=== PATIENT | female | born 1955 | race Asian ===

== ENCOUNTER 2017-01-01 12:30 | Emergency (ER) | payer BC, OTHER ==
[~2017-01-01] VITALS: Ht 170.2 cm; Wt 74.8 kg
--- NOTE | 2017-01-01 13:05 | ED General ---
General Chief Complaint: Cough/Cold/Flu Symptoms Stated Complaint: ELEVATED BS,DEHYDRATION Source of Information: Patient Exam Limitations: No Limitations History of Present Illness Time Seen by Provider: 13:04 Initial Comments To ER with reports of high blood sugar at 230 at home. She is a diabetic and takes Actos and metformin. She's also been vomiting for the past few days. She 's also been febrile. Denies abdominal pain. Denies diarrhea. Does not have a local physician but does live here. Reports diffuse body aches. Reportedly, the tested negative for influenza 3-4 days ago and is currently on Tamiflu for suspected influenza Timing/Duration: 2-3 Days Severity: Moderate Associated Systoms: Fever/Chills Malaise Nausea/Vomiting Allergies and Home Medications Allergies Coded Allergies: No Known Drug Allergies (Unverified , 01/01/17) Constitutional: see HPI EENTM: see HPI Respiratory: no symptoms reported Cardiovascular: no symptoms reported Gastrointestinal: No abdominal pain, nausea vomiting Genitourinary: no symptoms reported Musculoskeletal: no symptoms reported Skin: no symptoms reported Psychiatric/Neurological: No Symptoms Reported Physical Exam Vital Signs Vital Sign - Last 12Hours 01/01/17 13:00 Temp 98.4 Pulse 86 Resp 16 B/P 137/57 O2 Delivery Room Air Capillary Refill : General Appearance: No Apparent Distress WD/WN Eyes: Bilateral Eye EOMI, Bilateral Eye Normal Inspection, Bilateral Eye PERRL HEENT: PERRL/EOMI TMs Normal Respiratory: No Accessory Muscle Use No Respiratory Distress Cardiovascular: Regular Rate, Rhythm Normal Peripheral Pulses Gastrointestinal: Non Tender Soft Abnormal Bowel Sounds (hypoactive) Extremity: Normal Capillary Refill Normal Inspection Neurologic/Psychiatric: Alert Oriented x3 No Motor/Sensory Deficits Skin: Normal Color Warm/Dry Progress/Results/Core Measures Results/Orders Lab Results Laboratory Tests Test 01/01/17 12:57 Range/Units Alanine Aminotransferase (ALT/SGPT) 14 0-55 U/L Albumin 4.0 3.2-4.5 G/DL Alkaline Phosphatase 77 40-136 U/L Anion Gap 12 5-14 MMOL/L Aspartate Amino Transf (AST/SGOT) 24 5-34 U/L BUN/Creatinine Ratio 14 Basophils # (Auto) 0.0 0.0-0.1 10^3/uL Basophils (%) (Auto) 1 0-10 % Blood Urea Nitrogen 10 7-18 MG/DL Calcium Level 8.7 8.5-10.1 MG/DL Carbon Dioxide Level 23 21-32 MMOL/L Chloride Level 102 98-107 MMOL/L Creatinine 0.70 0.60-1.30 MG/DL Eosinophils # (Auto) 0.0 0.0-0.3 10^3/uL Eosinophils (%) (Auto) 1 0-10 % Estimat Glomerular Filtration Rate > 60 Glucose Level 141 H 70-105 MG/DL Hematocrit 41 35-52 % Hemoglobin 13.7 11.5-16.0 G/DL Lipase 6 L 8-78 U/L Lymphocytes # (Auto) 1.0 1.0-4.0 X 10^3 Lymphocytes (%) (Auto) 23 12-44 % Mean Corpuscular Hemoglobin 28 25-34 PG Mean Corpuscular Hemoglobin Concent 33 32-36 G/DL Mean Corpuscular Volume 83 80-99 FL Mean Platelet Volume 10.9 H 7.4-10.4 FL Monocytes # (Auto) 0.6 0.0-1.0 X 10^3 Monocytes (%) (Auto) 13 H 0-12 % Neutrophils # (Auto) 2.7 1.8-7.8 X 10^3 Neutrophils (%) (Auto) 62 42-75 % Platelet Count 267 130-400 10^3/uL Potassium Level 4.4 3.6-5.0 MMOL/L Red Blood Count 4.96 4.35-5.85 10^6/uL Red Cell Distribution Width 15.0 H 10.0-14.5 % Sodium Level 137 135-145 MMOL/L Total Bilirubin 0.2 0.1-1.0 MG/DL Total Protein 7.4 6.4-8.2 G/DL White Blood Count 4.3 4.3-11.0 10^3/uL Micro Results Microbiology 01/01/17 Influenza Types A,B Antigen ([facility]) - Final, Complete My Orders Orders-TRESA GODINEZ RAT CULTURIST Cbc With Automated Diff (01/01/17 13:02) Comprehensive Metabolic Panel (01/01/17 13:02) Lipase (01/01/17 13:02) Ua Culture If Indicated (01/01/17 13:02) Influenza A And B Antigens (01/01/17 13:02) Saline Lock/Iv-Start (01/01/17 13:02) Ns Iv 1000 Ml (Sodium Chloride 0.9%) (01/01/17 13:15) Ondansetron Injection (Zofran Injectio (01/01/17 13:15) Medications Given in ED Current Medications Medications Dose Ordered Sig/Shannon Route Start Time Stop Time Status Last Admin Dose Admin Ondansetron HCl 8 mg ONCE ONCE IVP 01/01/17 13:15 01/01/17 13:16 DC 01/01/17 13:09 8 MG Vital Signs/I&O Vital Sign - Last 12Hours 01/01/17 13:00 Temp 98.4 Pulse 86 Resp 16 B/P 137/57 O2 Delivery Room Air Departure Communication Progress Notes I did discuss with the that she is positive for influenza, Tamiflu would be unhelpful at this point since her symptoms of been present for 72 hours and antibiotics are not indicated as this is a viral illness. Impression Impression: Primary Impression: Influenza Disposition: 01 HOME, SELF-CARE Condition: Stable Departure-Patient Inst. Decision time for Depature: 13:40 Patient Instructions: Flu, Adult (DC) Add. Discharge Instructions: 1. Medication as directed 2. Return to ER for any worsening 3. Follow-up with her doctor next week All discharge instructions reviewed with patient and/or family. Voiced understanding. Scripts Ibuprofen 800 Mg [id number] Mg PO Q8H PRN PAIN #30 TAB Prov:TRESA GODINEZ APRN 01/01/17 Ondansetron (Zofran Odt)8 Mg Tab.rapdis8 Mg PO Q6H PRN NAUSEA/VOMITING #14 TAB Prov:TRESA GODINEZ APRN 01/01/17 TRESA GODINEZ APRN Jan 01, 2017 13:05
[2017-01-01 13:07] LABS: BASOPHILS % (AUTO) 1 % (0-10); EOSINOPHILS % (AUTO) 1 % (0-10); LYMPHOCYTES % (AUTO) 23 % (12-44); MEAN CORPUSCULAR HEMOGLOBIN 28 PG (25-34); MEAN CORPUSCULAR HGB CONC 33 G/DL (32-36); MEAN CORPUSCULAR VOLUME 83 FL (80-99); MEAN PLATELET VOLUME 10.9 FL (7.4-10.4); MONOCYTES # (AUTO) 0.6 X 10^3 (0.0-1.0); MONOCYTES % (AUTO) 13 % (0-12); NEUTROPHILS # (AUTO) 2.7 X 10^3 (1.8-7.8); NEUTROPHILS % (AUTO) 62 % (42-75); PLATELET COUNT 267 10^3/uL (130-400); RED BLOOD COUNT 4.96 10^6/uL (4.35-5.85); WHITE BLOOD COUNT 4.3 10^3/uL (4.3-11.0)
[2017-01-01] MEDS ORDERED: NS IV 1000 ML 1,000 ML IV SCH (13:15)
[2017-01-01] MEDS ORDERED: ONDANSETRON 4 MG/2 ML (SDV) Z0FRAN IVP ONE (13:15)
[2017-01-01 13:29] LABS: ALANINE AMINOTRANSFERASE 14 U/L (0-55); ANION GAP 12 MMOL/L (5-14); ASPARTATE AMINO TRANSFERASE 24 U/L (5-34); BILIRUBIN,TOTAL 0.2 MG/DL (0.1-1.0); BLOOD UREA NITROGEN 10 MG/DL (7-18); BUN/CREATININE RATIO 14; CALCIUM 8.7 MG/DL (8.5-10.1); CARBON DIOXIDE 23 MMOL/L (21-32); CHLORIDE 102 MMOL/L (98-107); GFR ESTIMATED > 60; GLUCOSE 141 MG/DL (70-105); LIPASE 6 U/L (8-78); POTASSIUM 4.4 MMOL/L (3.6-5.0); SODIUM 137 MMOL/L (135-145); TOTAL PROTEIN 7.4 G/DL (6.4-8.2)
[2017-01-01] MEDS ORDERED: ONDA8TAB9 PO (13:42)
[2017-01-01] MEDS ORDERED: IBUP-1780 PO (13:42)
[2017-01-01] MEDS ORDERED: KETOROLAC 30 MG/ML VIAL IVP ONE (13:45)
[2017-01-01 14:34] VITALS: BP 132/52
== END 2017-01-01 14:34 | disposition home or self-care (01) ==
LOC: ER 12:33
DX: J11.1 Influenza due to unidentified influenza virus with other respiratory manifestations (principal); E11.65 Type 2 diabetes mellitus with hyperglycemia; Z79.84 Long term (current) use of oral hypoglycemic drugs
CPT/HCPCS: 36415; 80053; 83690; 85025; 87804; 96361; 96374; 96375

== ENCOUNTER → 2019-05-30 | Outpatient (CLI) | payer BC, MEDICARE ==
[~2019-05-30] MED LIST: IBUP-1780 PO; ONDA8TAB9 PO
--- NOTE | 2019-05-30 17:48 | Diagnostic Imaging Report ---
INDICATION: Palpable lump on the dorsum of the right foot. FINDINGS: Sonographic interrogation of the area of palpable abnormality along the dorsum of the foot is noted. There is an area of ovoid circumscribed echogenicity measuring 2.5 x 0.6 x 1.4 cm, may represent a lipoma. No internal vascularity is seen. IMPRESSION: Questionable lipoma along the dorsum of the foot. Close clinical followup is recommended. If this does get bigger, further evaluation with MRI of the right foot would be recommended for better characterization. Dictated by: Dictated on workstation # [id number]
--- NOTE | 2019-05-30 20:00 | Diagnostic Imaging Report ---
INDICATION: Palpable lump in the upper-outer right breast. No prior studies are available for comparison. 2-D and 3-D bilateral diagnostic mammography was performed. BB marker was placed at the area of palpable abnormality in the upper-outer right breast. The current study was also evaluated with a Computer Aided Detection (CAD) system. 3-D tomosynthesis was also performed and reviewed. FINDINGS: There is a spiculated mass in the upper-outer right breast posterior depth approximately 2 cm in size. No associated microcalcifications are seen. Left breast is unremarkable. The axillae are unremarkable. IMPRESSION: Spiculated mass upper-outer right breast, concerning for neoplasm. Sonographic interrogation is recommended for further evaluation. ACR BI-RADS Category 0: Incomplete. (Needs additional imaging evaluation). Result letter will be mailed to the patient. Note: At least 10% of breast cancer is not imaged by mammography. Dictated by: Dictated on workstation # [id number]
--- NOTE | 2019-05-30 20:06 | Diagnostic Imaging Report ---
INDICATION: Right breast mass. Correlation is made with diagnostic mammogram earlier same day. FINDINGS: Sonographic interrogation of the upper-outer right breast was performed. At the 10 o'clock location, approximately 9 cm from the nipple there is a hypoechoic solid-appearing mass with irregular margins measuring 2.1 x 1.4 x 1.5 cm. This does show some internal vascularity along the margins. No other breast masses are seen. The right axilla is without lymphadenopathy. IMPRESSION: Irregular solid mass at the 10 o'clock location of the right breast corresponding to the palpable and mammographic abnormality. Features are concerning for breast neoplasm. Tissue sampling is recommended. This would be amenable to ultrasound-guided core biopsy. ACR BI-RADS Category 4: Suspicious abnormality. Dictated by: Dictated on workstation # [id number]
== END ==
LOC: RAD 13:11
PROVIDERS: ATTEND Nurse Practitioner Family
DX: N63.11 Unspecified lump in the right breast, upper outer quadrant (principal); R22.41 Localized swelling, mass and lump, right lower limb
CPT/HCPCS: 76881; 77066

== ENCOUNTER → 2019-06-02 | Outpatient (CLI) | payer BC, MEDICARE ==
[~2019-06-02] VITALS: Ht 172.7 cm; Wt 90.7 kg
[~2019-06-02] MED LIST changes: +LIDOCAINE 1% INJ 20 ML 20 ML VIAL INJ ONE
--- NOTE | 2019-06-02 19:03 | Diagnostic Imaging Report ---
INDICATION: Right breast mass, status post biopsy. EXAMINATION: 2D CC and ML mammography of the right breast was performed post ultrasound-guided biopsy. FINDINGS: Marker clip is located along the medial aspect of the spiculated mass in the upper outer right breast at posterior depth. IMPRESSION: Marker clip deployment, as described. Dictated by: Dictated on workstation # [id number]
--- NOTE | 2019-06-02 19:06 | Diagnostic Imaging Report ---
INDICATION: Right breast mass. Patient presents for ultrasound-guided biopsy. PROCEDURE: Patient was brought to the procedure room and placed on table in the supine position. Skin of the right breast was prepped and draped in the usual sterile fashion. A small amount of 1% lidocaine was utilized for local anesthesia. A 14-gauge Achieve needle was advanced and placed with its tip along the margin of the hypoechoic mass in the right breast 10 o'clock location. A total of four core biopsies were obtained. Marker clip was then deployed. Hemostasis was obtained using manual compression. Patient tolerated the procedure well and left the department in stable condition. IMPRESSION: Successful ultrasound-guided core biopsy of the hypoechoic mass in the right breast 10 o'clock location, 10 cm from the nipple. Pathology results are currently pending. Dictated by: Dictated on workstation # [id number]
== END ==
LOC: RAD 13:00
PROVIDERS: ATTEND Nurse Practitioner Family
DX: C50.411 Malignant neoplasm of upper-outer quadrant of right female breast (principal)
CPT/HCPCS: 19083

== ENCOUNTER → 2019-12-01 | Outpatient (CLI) | payer MEDICARE, MEDICAID ==
[~2019-12-01] MED LIST changes: -LIDOCAINE 1% INJ 20 ML 20 ML VIAL INJ ONE
== END ==
LOC: CARD 12:32
PROVIDERS: ATTEND Internal Medicine Cardiovascular Disease
DX: I15.9 Secondary hypertension, unspecified (principal)
CPT/HCPCS: 93306

== ENCOUNTER 2020-08-13 23:16 | Emergency (ER) | payer MEDICARE, MEDICAID ==
[~2020-08-13] VITALS: Ht 172.7 cm; Wt 94.8 kg
--- NOTE | 2020-08-13 23:33 | ED Integumentary General ---
General Stated Complaint: RT BREAST RED Source: patient Exam Limitations: language barrier History of Present Illness Date Seen by Provider: Aug 13, 2020 Time Seen by Provider: 23:17 Initial Comments Patient and present to the ER by private conveyance from home with chief complaint of a small patch of red tissue at the 12:00 apex above the right br east showed up on her skin. There is no wound or drainage. She's had no nipple discharge. Since late last night and has now vault to the entire right breast. It's painful. She's having a little bit of nausea but she says she is on Trulicity which has caused some nausea. She has a history of diabetes with labile blood sugars lately. They cannot tell me the numbers. She follows with primary care Dr. Love and oncology at [facility] and recently saw an community relations liaison there for her diabetes. She was diagnosed with right-sided, ipsilateral breast cancer year ago and had surgery and radiation but has only been on hormone therapy since then. No chemotherapy. No fevers, chills. She says she feels warm but no itching or pain. Allergies and Home Medications Allergies Coded Allergies: No Known Drug Allergies (Unverified , 01/01/17) Home Medications Ibuprofen 800 Mg Tablet, 800 MG PO Q8H PRN for PAIN Prescribed by: TRESA GODINEZ on 01/01/17 1342 Ondansetron 8 Mg Tab.rapdis, 8 MG PO Q6H PRN for NAUSEA/VOMITING Prescribed by: TRESA GODINEZ on 01/01/17 1342 Patient Home Medication List Home Medication List Reviewed: Yes Review of Systems Review of Systems Constitutional: No chills, No diaphoresis, No fever EENTM: No ear discharge, No ear pain Respiratory: No cough, No phlegm Cardiovascular: No chest pain, No edema Gastrointestinal: No abdominal pain, No nausea, No vomiting Genitourinary: No discharge, No dysuria Musculoskeletal: No back pain, No joint pain All Other Systems Reviewed Negative Unless Noted: Yes Past Vkflwwp-Grqwvn-Tpjgzf Hx Patient Social History Alcohol Use: Denies Use Recreational Drug Use: No Smoking Status: Never a Smoker Recent Foreign Travel: No Contact w/Someone Who Travel: No Physical Exam Vital Signs Vital Signs - First Documented 08/13/20 23:25 Temp 36.7 Pulse 111 Resp 20 B/P (MAP) 158/93 (114) Pulse Ox 98 Capillary Refill : General Appearance: WD/WN, no apparent distress HEENT: PERRL/EOMI, pharynx normal Neck: full range of motion, supple, normal inspection Cardiovascular: normal peripheral pulses, regular rate, rhythm Respiratory: lungs clear, normal breath sounds, no respiratory distress, no accessory muscle use Neurologic/Psychiatric: alert, normal mood/affect, oriented x 3 Skin: other (warm, dry, intact, erythematous skin involving the entire right b reast not going into the axilla but extending a few centimeters below the right breast. No exudate. No areas of induration. No nipple discharge. No pointing or wound. No areas of palpable fluctuance.) Progress/Results/Core Measures Results/Orders Lab Results Laboratory Tests Test 08/13/20 23:42 Range/Units White Blood Count 7.9 4.3-11.0 10^3/uL Red Blood Count 4.92 3.80-5.11 10^6/uL Hemoglobin 13.4 11.5-16.0 g/dL Hematocrit 41 35-52 % Mean Corpuscular Volume 83 80-99 fL Mean Corpuscular Hemoglobin 27 25-34 pg Mean Corpuscular Hemoglobin Concent 33 32-36 g/dL Red Cell Distribution Width 14.5 10.0-14.5 % Platelet Count 296 130-400 10^3/uL Mean Platelet Volume 9.9 9.0-12.2 fL Immature Granulocyte % (Auto) 0 % Neutrophils (%) (Auto) 72 42-75 % Lymphocytes (%) (Auto) 18 12-44 % Monocytes (%) (Auto) 8 0-12 % Eosinophils (%) (Auto) 1 0-10 % Basophils (%) (Auto) 0 0-10 % Neutrophils # (Auto) 5.7 1.8-7.8 10^3/uL Lymphocytes # (Auto) 1.4 1.0-4.0 10^3/uL Monocytes # (Auto) 0.7 0.0-1.0 10^3/uL Eosinophils # (Auto) 0.1 0.0-0.3 10^3/uL Basophils # (Auto) 0.0 0.0-0.1 10^3/uL Immature Granulocyte # (Auto) 0.0 0.0-0.1 10^3/uL Erythrocyte Sedimentation Rate 19 0-30 MM/HR Sodium Level 139 135-145 MMOL/L Potassium Level 4.5 3.6-5.0 MMOL/L Chloride Level 102 98-107 MMOL/L Carbon Dioxide Level 27 21-32 MMOL/L Anion Gap 10 5-14 MMOL/L Blood Urea Nitrogen 10 7-18 MG/DL Creatinine 0.76 0.60-1.30 MG/DL Estimat Glomerular Filtration Rate > 60 BUN/Creatinine Ratio 13 Glucose Level 147 H 70-105 MG/DL Calcium Level 9.7 8.5-10.1 MG/DL Corrected Calcium 9.5 8.5-10.1 MG/DL Total Bilirubin 0.3 0.1-1.0 MG/DL Aspartate Amino Transf (AST/SGOT) 19 5-34 U/L Alanine Aminotransferase (ALT/SGPT) 21 0-55 U/L Alkaline Phosphatase 109 40-136 U/L C-Reactive Protein High Sensitivity 0.52 H 0.00-0.50 MG/DL Total Protein 7.6 6.4-8.2 GM/DL Albumin 4.2 3.2-4.5 GM/DL My Orders Orders - SANTHOSH LINTON Cbc With Automated Diff (08/13/20 23:29) Comprehensive Metabolic Panel (08/13/20 23:29) Hs C Reactive Protein (08/13/20 23:29) Erythrocyte Sedimentation Rate (08/13/20 23:29) Blood Culture (08/13/20 23:45) Ceftriaxone For Iv Use (Rocephin For I (08/14/20 00:00) Ed Iv/Invasive Line Start (08/13/20 23:49) Ns Iv 500 Ml (Sodium Chloride 0.9%) (08/13/20 23:49) Medications Given in ED Current Medications Medications Dose Ordered Sig/Shannon Route Start Time Stop Time Status Last Admin Dose Admin Ceftriaxone Sodium 1000 mg/ Sterile Water 10 ml @ 200 mls/hr ONCE ONCE IV 08/14/20 00:00 08/14/20 00:02 DC 08/14/20 00:15 200 MLS/HR Sodium Chloride 500 ml @ 0 mls/hr Q0M ONCE IV 08/13/20 23:49 08/13/20 23:50 DC 08/14/20 00:15 500 MLS/HR Vital Signs/I&O 08/13/20 23:25 Temp 36.7 Pulse 111 Resp 20 B/P (MAP) 158/93 (114) Pulse Ox 98 Progress Progress Note : Time: 23:42 Progress Note Bedside ultrasound applied looking for collection of fluid or abscess. None was visible. Inflamed, cellulitic appearance. Plan is to start her on antibiotics and check some labs since her heart rate was up to 110 when she arrived. We'll give her 500 cc of normal saline. Plan to put her on antibiotics and have her follow-up this week or early next week with her oncologist Dr. Pedro Luis Gloria (sp?). Patient is not having any otherwise discomfort. She is afebrile. If her labs are okay then we can try treating outpatient. If she has a significant white count however we may recommend inpatient IV antibiotics. Plan to give her a gram or Rocephin. We'll obtain blood cultures. Even after this examiner has left the room for a short while the patient's heart rate is still 100. Departure Impression Primary Impression: Cellulitis of right breast Disposition: 01 HOME, SELF-CARE Condition: Stable Departure-Patient Inst. Decision time for Depature: 00:29 Referrals: BARBIE LOVE MD (PCP/Family) Primary Care Physician Patient Instructions: Cellulitis (Skin Infection), Adult (DC) Add. Discharge Instructions: If this is a soft tissue infection of your breast and the antibiotic should start to turn your symptoms around within the next 3 days. Plan to follow up with your oncologist in the next 1-2 weeks. Keflex one capsule 4 times a day for a week. Scripts Cephalexin (Cephalexin) 500 Mg Tablet 500 MG PO QID, #28 TAB 0 Refills Prov: SANTHOSH LINTON 08/14/20 SANTHOSH LINTON Aug 13, 2020 23:33
[2020-08-13] MEDS ORDERED: NS IV 500 ML 500 ML IV ONE (23:49)
[2020-08-13 23:52] LABS: BASOPHILS % (AUTO) 0 % (0-10); EOSINOPHILS # (AUTO) 0.1 10^3/uL (0.0-0.3); EOSINOPHILS % (AUTO) 1 % (0-10); HEMATOCRIT 41 % (35-52); HEMOGLOBIN 13.4 g/dL (11.5-16.0); LYMPHOCYTES # (AUTO) 1.4 10^3/uL (1.0-4.0); LYMPHOCYTES % (AUTO) 18 % (12-44); MEAN CORPUSCULAR HEMOGLOBIN 27 pg (25-34); MEAN CORPUSCULAR HGB CONC 33 g/dL (32-36); MEAN CORPUSCULAR VOLUME 83 fL (80-99); MEAN PLATELET VOLUME 9.9 fL (9.0-12.2); MONOCYTES # (AUTO) 0.7 10^3/uL (0.0-1.0); MONOCYTES % (AUTO) 8 % (0-12); NEUTROPHILS # (AUTO) 5.7 10^3/uL (1.8-7.8); NEUTROPHILS % (AUTO) 72 % (42-75); PLATELET COUNT 296 10^3/uL (130-400); WHITE BLOOD COUNT 7.9 10^3/uL (4.3-11.0)
[2020-08-14] MEDS ORDERED: cefTRIAXone FOR IV USE 1,000 MG in WATER (STERILE) FOR INJECTION 10 ML IV ONE ×2
[2020-08-14 00:06] LABS: ALBUMIN 4.2 GM/DL (3.2-4.5); CHLORIDE 102 MMOL/L (98-107); POTASSIUM 4.5 MMOL/L (3.6-5.0); SODIUM 139 MMOL/L (135-145)
[2020-08-14 00:07] LABS: CALCIUM 9.7 MG/DL (8.5-10.1)
[2020-08-14 00:08] LABS: GLUCOSE 147 MG/DL (70-105); TOTAL PROTEIN 7.6 GM/DL (6.4-8.2)
[2020-08-14 00:09] LABS: CARBON DIOXIDE 27 MMOL/L (21-32)
[2020-08-14 00:10] LABS: BILIRUBIN,TOTAL 0.3 MG/DL (0.1-1.0)
[2020-08-14 00:11] LABS: ERYTHROCYTE SEDIMENTATION RATE 19 MM/HR (0-30)
[2020-08-14 00:12] LABS: ALKALINE PHOSPHATASE 109 U/L (40-136); CREATININE SERUM 0.76 MG/DL (0.60-1.30); GFR ESTIMATED > 60
[2020-08-14 00:13] LABS: BUN/CREATININE RATIO 13
[2020-08-14 00:15] LABS: ALANINE AMINOTRANSFERASE 21 U/L (0-55)
[2020-08-14] MEDS ORDERED: CEPH500T PO (00:31)
[2020-08-14 00:35] VITALS: BP 146/81
== END 2020-08-14 00:41 | disposition home or self-care (01) ==
LOC: EDUNIT# 23:16 → ER 23:18
DX: N61.0 Mastitis without abscess (principal); E11.9 Type 2 diabetes mellitus without complications; Z85.3 Personal history of malignant neoplasm of breast
CPT/HCPCS: 36415; 80053; 85025; 85652; 86141; 87040

== ENCOUNTER 2021-05-08 05:42 | Outpatient (CLI) | payer MEDICARE, MEDICAID ==
[~2021-05-08] VITALS: Ht 170.2 cm; Wt 86.4 kg
[~2021-05-08 05:42] MED LIST changes: +CEPH500T PO
[2021-05-08] MEDS ORDERED: SEMA0.25 SQ (13:55)
[2021-05-08] MEDS ORDERED: LETR2.5T6 PO (13:55)
[2021-05-08] MEDS ORDERED: METF-397 PO (13:55)
== END 2021-05-08 13:59 | disposition home or self-care (01) ==
LOC: PREOP 05:42
PROVIDERS: ATTEND Orthopaedic Surgery
DX: Z01.818 Encounter for other preprocedural examination (principal)

== ENCOUNTER 2022-06-12 22:48 | Emergency (ER) | payer MEDICARE, MEDICAID ==
[~2022-06-12] VITALS: Ht 170 cm; Wt 86.4 kg
[~2022-06-12 22:48] MED LIST changes: +LETR2.5T6 PO; +METF-397 PO; +SEMA0.25 SQ
[2022-06-12] MEDS ORDERED: TETANUS,DIPTH,PERTUSS P/F (BOOSTRIX) 0.5 ML VIAL IM ONE (23:45)
--- NOTE | 2022-06-13 00:29 | ED Fall/Injury ---
General Chief Complaint: Upper Extremity Stated Complaint: FALL, LEFT ARM PAIN Nursing Triage Note: TO ED VIA POV AND REQUEST W/C TO ROOM 6 WITH C/O LEFT ARM PAIN AFTER FALLING ON ROAD DURING WALK APPROX 1930 TONIGHT. DENIES HITTING HEAD OR LOC. Source: patient, spouse ( DOES MOST OF TALKING FOR PT) Allergies and Home Medications Allergies Coded Allergies: No Known Drug Allergies (Unverified , 08/14/20) Patient Home Medication List Letrozole (Letrozole) 2.5 Mg Tablet, 2.5 MG PO DAILY, (Reported) Entered as Reported by: NERIS DAVIS on 05/08/21 1355 Metformin HCl (Metformin HCl) 500 Mg Tablet, 500 MG PO BID, (Reported) Entered as Reported by: NERIS DAVIS on 05/08/21 1355 Semaglutide (Ozempic) 0.25 Mg/0.2 Ml Pen.injctr, 0.25 MG SQ every 2 weeks, (Reported) Entered as Reported by: NERIS DAVIS on 05/08/21 1355 Past Elgfbep-Kfvamc-Vydqwq Hx Patient Social History Tobacco Use?: No Substance use?: No Alcohol Use?: No Immunizations Up To Date 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 VACCINES Seasonal Allergies Seasonal Allergies: No Past Medical History Surgeries: Yes (LYMPHECTOMY, ) Hysterectomy, Lumpectomy Respiratory: No Cardiac: No Neurological: No Genitourinary: No Gastrointestinal: No Musculoskeletal: Yes (R shoulder ) Endocrine: Yes Diabetes, Non-Insulin dep HEENT: No Cancer: Yes Breast Did You Recieve Any Treatments: Yes What Type of Treatment Did You: Radiation, Surgical Intervention Psychosocial: No Integumentary: No Blood Disorders: No Physical Exam Vital Signs Vital Signs - First Documented 06/12/22 23:19 Temp 35.8 Pulse 94 Resp 16 B/P (MAP) 104/61 (75) Pulse Ox 94 O2 Delivery Room Air Capillary Refill : Less Than 3 Seconds Height, Weight, BMI Height: 5'8.00" Weight: 200lbs. 0.0oz. [id number]; 29.00 BMI Method:Stated Progress/Results/Core Measures Results/Orders My Orders Orders - MIKE DIXON DO Dipht,Pertuss(Acell),Tet Adult (Boostrix (06/12/22 23:45) Hand, 3 Views, Bilateral (06/12/22 23:40) Forearm, Left, 2 Views (06/13/22 00:01) Humerus, Left, 2 Views (06/13/22 00:01) Elbow, Left, 3 Views (06/13/22 00:01) Knee, 3 Views, Bilateral (06/13/22 00:01) Accucheck Stat ONCE (06/13/22 00:27) Vital Signs/I&O 06/12/22 23:19 Temp 35.8 Pulse 94 Resp 16 B/P (MAP) 104/61 (75) Pulse Ox 94 O2 Delivery Room Air Blood Pressure Mean: 75 Departure Impression Primary Impression: Fall from standing Additional Impressions: Closed fracture of head of left radius BILATERAL HAND CONTUSIONS Abrasions of multiple sites Left shoulder strain BILATERAL KNEE CONTUSIONS Disposition: 01 HOME, SELF-CARE Condition: Stable Departure-Patient Inst. Decision time for Depature: 00:40 Referrals: BARBIE KOHLER MD (PCP/Family) Primary Care Physician AJIT DURAND MD Patient Instructions: Contusion (DC), How to Use a Shoulder Sling, Preventing Falls ED, Radius Fracture (DC), Skin Abrasions (DC) Add. Discharge Instructions: WEAR SLING AT ALL TIMES ICE TO SORE AREAS AT 20 MINUTE INTERVALS FOLLOW UP WITH DR. DURAND NEXT WEEK--CALL IN THE MORNING TO SCHEDULE AN APPOINTMENT All discharge instructions reviewed with patient and/or family. Voiced underst anding. Scripts Hydrocodone/Acetaminophen (Hydrocodone-Acetamin 5-325 mg) 5 Mg-325 Mg Tablet 1 EACH PO Q4-6 HOURS PRN for PAIN, #20 TAB Prov: MIKE DIXON DO 06/13/22 MIKE DIXON DO Jun 13, 2022 00:29
[2022-06-13] MEDS ORDERED: ACHD5005 PO (00:49)
[2022-06-13 01:16] VITALS: BP 105/66
--- NOTE | 2022-06-13 07:51 | Diagnostic Imaging Report ---
INDICATION: Post recent fall while walking, pain TECHNIQUE: 2 views of the left humerus CORRELATION STUDY: None FINDINGS: The humerus has an unremarkable appearance. The visualized portions of the shoulder and elbow are unremarkable. Soft tissues are unremarkable. IMPRESSION: 1. Negative for acute bony abnormality of the humerus. Dictated by: Dictated on workstation # [id number]
--- NOTE | 2022-06-13 08:03 | Diagnostic Imaging Report ---
INDICATION: Bilateral knee pain, post fall while walking. TECHNIQUE: 3 views of the bilateral knee CORRELATION STUDY: None FINDINGS: Mild joint space narrowing with medial compartment of both knees. The articular surfaces are smooth. There is mild spurlike formation superior pole of patella. However, there is lucency at superior pole of both patellas. While somewhat atypical, question of avulsion fracture off the superior poles. Mild soft tissue edema. IMPRESSION: 1. Question small avulsion fracture the superior pole of both patellas versus degenerative osteophyte formation. Correlation with symptoms. Dictated by: Dictated on workstation # [id number]
--- NOTE | 2022-06-13 08:03 | Diagnostic Imaging Report ---
INDICATION: Elbow pain, post recent fall while walking. TECHNIQUE: 3 views of the left elbow CORRELATION STUDY: None FINDINGS: Findings are positive for slightly impacted radial neck fracture. Alignment otherwise anatomic. Distal humerus and proximal ulna intact. Joint effusion is present. IMPRESSION: 1. Slightly impacted left radial neck fracture. Dictated by: Dictated on workstation # [id number]
--- NOTE | 2022-06-13 08:06 | Diagnostic Imaging Report ---
INDICATION: Pain post recent fall while walking TECHNIQUE: 2 views of the left forearm. CORRELATION STUDY: None FINDINGS: Very slightly impacted left radial neck fracture present. The remainder of the radius as well as ulna intact. The visualized portion the wrist unremarkable. Soft tissues are unremarkable. IMPRESSION: 1. Very slightly impacted left radial neck fracture. Dictated by: Dictated on workstation # [id number]
--- NOTE | 2022-06-13 08:19 | Diagnostic Imaging Report ---
INDICATION: Bilateral hand pain, post fall while walking. TECHNIQUE: Three views of the bilateral hand. CORRELATION STUDY: None FINDINGS: There is rather prominent generalized bony demineralization. There is no evidence for acute fracture or dislocation. Joint spaces demonstrate mild degenerative changes to be present. Soft tissues are unremarkable. IMPRESSION: 1. Negative for acute bony abnormality of either hand. Dictated by: Dictated on workstation # [id number]
== END 2022-06-13 01:17 | disposition home or self-care (01) ==
LOC: EDUNIT# 22:48 → ER 22:51
DX: S52.122A Displaced fracture of head of left radius, initial encounter for closed fracture (principal); S46.912A Strain of unspecified muscle, fascia and tendon at shoulder and upper arm level, left arm, initial encounter; S80.01XA Contusion of right knee, initial encounter; S80.02XA Contusion of left knee, initial encounter; S60.221A Contusion of right hand, initial encounter; S60.222A Contusion of left hand, initial encounter; Z23 Encounter for immunization; W18.30XA Fall on same level, unspecified, initial encounter; Y93.01 Activity, walking, marching and hiking
CPT/HCPCS: 73060; 73080; 73090; 82947; 90715

== ENCOUNTER → 2022-09-15 | Outpatient (RCR) | payer MEDICARE, MEDICAID ==
[~2022-09-15] MED LIST changes: +ACHD5005 PO
== END | disposition home or self-care (01) ==
PROVIDERS: ATTEND Orthopaedic Surgery
DX: G56.02 Carpal tunnel syndrome, left upper limb (principal)

== ENCOUNTER 2022-10-15 13:17 | Outpatient (RCR) | payer MEDICARE, MEDICAID | END 2022-10-15 14:40 | disposition home or self-care (01) | PROVIDERS: ATTEND Orthopaedic Surgery | DX: G56.02 Carpal tunnel syndrome, left upper limb (principal) ==

== ENCOUNTER → 2023-03-10 | Outpatient (CLI) | payer MEDICARE, MEDICAID | LOC: CARD 10:39 | PROVIDERS: ATTEND Internal Medicine Cardiovascular Disease | DX: R53.83 Other fatigue (principal); R53.81 Other malaise | CPT/HCPCS: 93306 ==

== ENCOUNTER → 2023-03-24 | Outpatient (CLI) | payer MEDICARE, MEDICAID ==
[~2023-03-24] VITALS: Ht 170 cm; Wt 81.0 kg
[~2023-03-24] MED LIST changes: +CATHETER FLUSH 10 ML SYR IVP PRN; +REGADENOSON 0.4 MG/5 ML SYR (LEXISCAN) IV ONE
[2023-03-24 09:04] VITALS: BP 143/80
== END ==
LOC: CARD 07:08
PROVIDERS: ATTEND Internal Medicine Cardiovascular Disease
DX: R53.83 Other fatigue (principal)
CPT/HCPCS: 78452; 93017; A9502